=== PATIENT | female | born 1955 | race Caucasian/White ===

== ENCOUNTER 2018-10-28 11:45 | Emergency (ER) | payer OTHER ==
[~2018-10-28] VITALS: Ht 162.5 cm; Wt 45.4 kg
[2018-10-28 12:52] LABS: BASO % 0.6 % (0.0-1.0); EOS % 0.3 % (1.0-4.0); HEMOGLOBIN 13.9 g/dl (12.0-16.0); LYMPH # 1.2 10*3/uL (1.3-4.4); LYMPH % 17.3 % (27.0-41.0); MEAN CELL VOLUME 86.5 fl (81.0-99.0); MEAN CORPUSCULAR HGB 29.3 pg (27.0-31.0); MEAN CORPUSCULAR HGB CONC 33.9 g/dl (33.0-37.0); MEAN PLATELET VOLUME 8.1 fl (9.6-12.3); MONO # 0.4 10*3/uL (0.1-1.0); MONO % 5.9 % (3.0-9.0); NEUT # 5.2 10*3/uL (2.3-7.9); NEUT % 75.6 % (47.0-73.0); PLATELET COUNT AUTOMATED 457 10*3/uL (130-400); RED BLOOD COUNT 4.74 10*6/uL (4.10-5.10); RED CELL DISTRI WIDTH 11.9 % (0-14.5); WHITE BLOOD COUNT 6.9 10*3/uL (4.8-10.8)
[2018-10-28 13:07] LABS: ALBUMIN 3.6 gm/dl (3.1-4.5); ALKALINE PHOSPHATASE 95 U/L (45-117); BUN 8 mg/dl (7-24); CHLORIDE 104 mmol/L (98-107); CREATININE 0.74 mg/dL (0.55-1.02); POTASSIUM 3.9 mmol/L (3.5-5.1); SGOT/AST 9 IU/L (3-35); SGPT/ALT 14 U/L (12-78); SODIUM 136 mmol/L (136-145); TOTAL PROTEIN 7.4 gm/dL (6.4-8.2)
[2018-10-28] MEDS ORDERED: ZOFRAN4 MG PO (13:53)
[2018-10-28] MEDS ORDERED: DIFLUCAN150 MG PO (13:53)
[2018-10-28] MEDS ORDERED: AMOXICILLIN500 M2 PO (13:53)
[2018-10-28] MEDS ORDERED: GOOD NEIGHBOR M25 M1 PO (13:53)
== END 2018-10-28 14:09 | disposition home or self-care (01) ==
LOC: ED 11:45
PROVIDERS: Emergency Medicine
DX: J32.9 Chronic sinusitis, unspecified (principal); H83.09 Labyrinthitis, unspecified ear

== ENCOUNTER → 2018-12-18 | Outpatient (CLI) | payer OTHER ==
[~2018-12-18] MED LIST: AMOXICILLIN500 M2 PO; DECADRON4 MG PO; DIFLUCAN150 MG PO; GOOD NEIGHBOR M25 M1 PO; LEVETIRACETAM1000 M1 PO; NICODERM CQ1 EAC1 T; PANTOPRAZOLE SO40 MG PO; PHENYTOIN50 M1 PO; VIMPAT100 MG PO; ZOFRAN4 MG PO
== END | disposition home or self-care (01) ==
LOC: MRI 11:51
DX: J43.9 Emphysema, unspecified (principal); G93.89 Other specified disorders of brain; H53.133 Sudden visual loss, bilateral; R42 Dizziness and giddiness; R26.9 Unspecified abnormalities of gait and mobility; R29.898 Other symptoms and signs involving the musculoskeletal system

== ENCOUNTER 2018-12-22 19:14 | Emergency (ER) | payer OTHER ==
[~2018-12-22] VITALS: Ht 170.1 cm; Wt 50.8 kg
--- NOTE | ~2018-12-22 | EKG ---
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
[~2018-12-22 19:14] MED LIST changes: -DECADRON4 MG PO; -LEVETIRACETAM1000 M1 PO; -NICODERM CQ1 EAC1 T; -PANTOPRAZOLE SO40 MG PO; -PHENYTOIN50 M1 PO; -VIMPAT100 MG PO
[2018-12-22 19:51] LABS: BASO # 0.1 10*3/uL (0.0-0.1); BASO % 0.7 % (0.0-1.0); EOS # 0.1 10*3/uL (0.0-0.4); EOS % 0.8 % (1.0-4.0); HEMATOCRIT 41.3 % (37.0-47.0); HEMOGLOBIN 13.9 g/dl (12.0-16.0); LYMPH # 3.1 10*3/uL (1.3-4.4); MEAN CELL VOLUME 90.6 fl (81.0-99.0); MEAN CORPUSCULAR HGB 30.5 pg (27.0-31.0); MEAN CORPUSCULAR HGB CONC 33.7 g/dl (33.0-37.0); MEAN PLATELET VOLUME 8.3 fl (9.6-12.3); MONO # 0.6 10*3/uL (0.1-1.0); MONO % 4.3 % (3.0-9.0); NEUT # 9.4 10*3/uL (2.3-7.9); NEUT % 70.5 % (47.0-73.0); PLATELET COUNT AUTOMATED 531 10*3/uL (130-400); RED BLOOD COUNT 4.56 10*6/uL (4.10-5.10); RED CELL DISTRI WIDTH 12.8 % (0-14.5); WHITE BLOOD COUNT 13.4 10*3/uL (4.8-10.8)
[2018-12-22 19:59] LABS: ACT PARTIAL THROMBO TIME 23.5 SECONDS (20.8-31.5)
[2018-12-22 20:11] LABS: ALBUMIN 3.9 gm/dl (3.1-4.5); BUN 16 mg/dl (7-24); CHLORIDE 102 mmol/L (98-107); CREATININE 0.77 mg/dL (0.55-1.02); LIPASE 268 U/L (73-393); PHOSPHOROUS 4.9 mg/dL (2.5-4.9); POTASSIUM 3.6 mmol/L (3.5-5.1); SGOT/AST 18 IU/L (3-35); SGPT/ALT 26 U/L (12-78); SODIUM 133 mmol/L (136-145); TOTAL PROTEIN 7.8 gm/dL (6.4-8.2)
[2018-12-22 20:12] LABS: ALKALINE PHOSPHATASE 102 U/L (45-117)
[2018-12-22 20:29] LABS: TROPONIN I 0.115 ng/ml (<0.045)
== END 2018-12-23 03:44 | disposition short-term general hospital (02) ==
LOC: ED 19:14
PROVIDERS: Emergency Medicine
DX: G93.9 Disorder of brain, unspecified (principal); R56.9 Unspecified convulsions; R00.0 Tachycardia, unspecified; R79.1 Abnormal coagulation profile

== ENCOUNTER 2018-12-30 05:57 | Emergency (ER) | payer OTHER ==
[~2018-12-30] VITALS: Ht 157.4 cm; Wt 54.4 kg
--- NOTE | ~2018-12-30 | EKG ---
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
[2018-12-30 06:26] LABS: HEMATOCRIT 38.6 % (37.0-47.0); HEMOGLOBIN 12.9 g/dl (12.0-16.0); MEAN CELL VOLUME 91.3 fl (81.0-99.0); MEAN CORPUSCULAR HGB 30.5 pg (27.0-31.0); MEAN CORPUSCULAR HGB CONC 33.4 g/dl (33.0-37.0); MEAN PLATELET VOLUME 8.1 fl (9.6-12.3); PLATELET COUNT AUTOMATED 453 10*3/uL (130-400); RED BLOOD COUNT 4.23 10*6/uL (4.10-5.10); WHITE BLOOD COUNT 17.4 10*3/uL (4.8-10.8)
[2018-12-30 06:35] LABS: ACT PARTIAL THROMBO TIME 19.7 SECONDS (20.8-31.5)
[2018-12-30 06:44] LABS: TOTAL CELLS COUNTED 100 #CELLS
[2018-12-30 06:45] LABS: PLATELET SUFFICIENCY HIGH (NORMAL)
[2018-12-30 06:57] LABS: BILIRUBIN NEGATIVE (NEGATIVE); BLOOD 2+ (NEGATIVE); CLARITY CLEAR (CLEAR); COLOR YELLOW (YELLOW); GLUCOSE 2+ (NEGATIVE); KETONE NEGATIVE (NEGATIVE); LEUKO ESTERASE NEGATIVE (NEGATIVE); NITRITE NEGATIVE (NEGATIVE); UROBILINOGEN 0.2 E.U./dl (0.2-1.0)
[2018-12-30 06:57] LABS: ALBUMIN 3.2 gm/dl (3.1-4.5); ALKALINE PHOSPHATASE 117 U/L (45-117); BUN 11 mg/dl (7-24); CHLORIDE 105 mmol/L (98-107); CREATININE 0.81 mg/dL (0.55-1.02); LIPASE 242 U/L (73-393); POTASSIUM 3.5 mmol/L (3.5-5.1); SGOT/AST 30 IU/L (3-35); SGPT/ALT 53 U/L (12-78); SODIUM 139 mmol/L (136-145); TOTAL PROTEIN 7.3 gm/dL (6.4-8.2)
[2018-12-30 07:00] LABS: TROPONIN I 0.507 ng/ml (<0.045)
[2018-12-30 07:28] LABS: BACTERIA 1+; MUCOUS 1+; RBC 21-30 rbc/hpf (0-2)
== END 2018-12-30 07:29 | disposition short-term general hospital (02) ==
LOC: ED 05:57
PROVIDERS: Emergency Medicine Emergency Medical Services
DX: G83.84 Todd's paralysis (postepileptic) (principal); R56.9 Unspecified convulsions; Z79.2 Long term (current) use of antibiotics

== ENCOUNTER 2019-01-12 16:26 | Emergency (ER) | payer OTHER ==
[~2019-01-12] VITALS: Ht 167.6 cm; Wt 49.9 kg
[2019-01-12 16:59] LABS: BASO # 0.2 10*3/uL (0.0-0.1); BASO % 1.9 % (0.0-1.0); EOS # 0.3 10*3/uL (0.0-0.4); EOS % 3.3 % (1.0-4.0); HEMATOCRIT 39.7 % (37.0-47.0); HEMOGLOBIN 12.6 g/dl (12.0-16.0); LYMPH # 2.9 10*3/uL (1.3-4.4); LYMPH % 33.3 % (27.0-41.0); MEAN CELL VOLUME 93.4 fl (81.0-99.0); MEAN CORPUSCULAR HGB 29.6 pg (27.0-31.0); MEAN CORPUSCULAR HGB CONC 31.7 g/dl (33.0-37.0); MEAN PLATELET VOLUME 8.3 fl (9.6-12.3); MONO # 0.8 10*3/uL (0.1-1.0); NEUT # 4.6 10*3/uL (2.3-7.9); PLATELET COUNT AUTOMATED 511 10*3/uL (130-400); RED BLOOD COUNT 4.25 10*6/uL (4.10-5.10); RED CELL DISTRI WIDTH 13.2 % (0-14.5); WHITE BLOOD COUNT 8.8 10*3/uL (4.8-10.8)
[2019-01-12] MEDS ORDERED: PHENYTOIN50 M1 PO (17:08)
[2019-01-12 17:09] LABS: ACT PARTIAL THROMBO TIME 21.9 SECONDS (20.8-31.5); INTERNATIONAL NORM RATIO 0.9 (2.0-3.5)
[2019-01-12] MEDS ORDERED: LEVETIRACETAM1000 M1 PO (17:09)
[2019-01-12] MEDS ORDERED: NICODERM CQ1 EAC1 T (17:09)
[2019-01-12] MEDS ORDERED: VIMPAT100 MG PO (17:09)
[2019-01-12 17:28] LABS: ALBUMIN 3.6 gm/dl (3.1-4.5); ALKALINE PHOSPHATASE 148 U/L (45-117); BUN 17 mg/dl (7-24); CHLORIDE 100 mmol/L (98-107); CREATININE 0.99 mg/dL (0.55-1.02); POTASSIUM 4.1 mmol/L (3.5-5.1); SGOT/AST 46 IU/L (3-35); SGPT/ALT 86 U/L (12-78); SODIUM 134 mmol/L (136-145); TOTAL PROTEIN 7.8 gm/dL (6.4-8.2)
== END 2019-01-13 20:44 | disposition short-term general hospital (02) ==
LOC: ED 16:26
PROVIDERS: Emergency Medicine
DX: D49.6 Neoplasm of unspecified behavior of brain (principal); R41.82 Altered mental status, unspecified; H55.09 Other forms of nystagmus; F17.200 Nicotine dependence, unspecified, uncomplicated; Z79.899 Other long term (current) drug therapy; Z85.118 Personal history of other malignant neoplasm of bronchus and lung

== ENCOUNTER 2019-02-04 02:42 | Emergency (ER) | payer OTHER ==
[~2019-02-04] VITALS: Ht 167.6 cm; Wt 59.0 kg
--- NOTE | ~2019-02-04 | EKG ---
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
[~2019-02-04 02:42] MED LIST changes: +LEVETIRACETAM1000 M1 PO; +NICODERM CQ1 EAC1 T; +PHENYTOIN50 M1 PO; +VIMPAT100 MG PO
[2019-02-04] MEDS ORDERED: PANTOPRAZOLE SO40 MG PO (03:10)
[2019-02-04 03:11] LABS: BASO # 0.1 10*3/uL (0.0-0.1); BASO % 0.6 % (0.0-1.0); EOS % 0.5 % (1.0-4.0); HEMATOCRIT 40.7 % (37.0-47.0); HEMOGLOBIN 13.5 g/dl (12.0-16.0); LYMPH # 1.7 10*3/uL (1.3-4.4); LYMPH % 22.2 % (27.0-41.0); MEAN CELL VOLUME 91.7 fl (81.0-99.0); MEAN CORPUSCULAR HGB 30.4 pg (27.0-31.0); MEAN CORPUSCULAR HGB CONC 33.2 g/dl (33.0-37.0); MEAN PLATELET VOLUME 8.2 fl (9.6-12.3); MONO # 0.5 10*3/uL (0.1-1.0); MONO % 6.3 % (3.0-9.0); NEUT # 5.4 10*3/uL (2.3-7.9); NEUT % 69.2 % (47.0-73.0); PLATELET COUNT AUTOMATED 432 10*3/uL (130-400); RED BLOOD COUNT 4.44 10*6/uL (4.10-5.10); RED CELL DISTRI WIDTH 13.1 % (0-14.5); WHITE BLOOD COUNT 7.7 10*3/uL (4.8-10.8)
[2019-02-04] MEDS ORDERED: DECADRON4 MG PO (03:12)
[2019-02-04] MEDS ORDERED: VIMPAT100 MG PO (03:12)
[2019-02-04 03:29] LABS: ACT PARTIAL THROMBO TIME 21.2 SECONDS (20.8-31.5); INTERNATIONAL NORM RATIO 0.9 (2.0-3.5)
[2019-02-04 03:36] LABS: ALBUMIN 3.2 gm/dl (3.1-4.5); ALKALINE PHOSPHATASE 147 U/L (45-117); BUN 14 mg/dl (7-24); CHLORIDE 104 mmol/L (98-107); POTASSIUM 3.9 mmol/L (3.5-5.1); SGOT/AST 30 IU/L (3-35); SGPT/ALT 63 U/L (12-78); SODIUM 138 mmol/L (136-145); TOTAL PROTEIN 7.6 gm/dL (6.4-8.2)
[2019-02-04 03:37] LABS: TROPONIN I < 0.015 ng/ml (<0.045)
== END 2019-02-04 04:35 | disposition short-term general hospital (02) ==
LOC: ED 02:42
PROVIDERS: Student in an Organized Health Care Education/Training Program
DX: R41.82 Altered mental status, unspecified (principal); R32 Unspecified urinary incontinence; R79.1 Abnormal coagulation profile; Z79.899 Other long term (current) drug therapy